=== PATIENT | male | born 1995 | race African-American/Black ===

== ENCOUNTER 2016-08-26 11:23 | Emergency (ER) | payer OTHER, SELFPAY ==
[~2016-08-26] VITALS: Ht 170.2 cm; Wt 65.9 kg
[~2016-08-26 11:23] MED LIST: NO MEDS
[2016-08-26 13:34] VITALS: BP 115/69
== END 2016-08-26 13:37 | disposition home or self-care (01) ==
LOC: EMS 11:24
DX: J02.9 Acute pharyngitis, unspecified (principal); J32.9 Chronic sinusitis, unspecified
CPT/HCPCS: 99283